=== PATIENT | female | born 2000 | race African-American/Black ===

== ENCOUNTER 2023-03-10 01:14 | Emergency (ER) | payer OTHER, MEDICAID ==
[~2023-03-10] VITALS: Ht 162.6 cm; Wt 77.2 kg
[2023-03-10 01:24] VITALS: O2SAT 100
[2023-03-10 02:19] LABS: BASOPHILS % 0.3 % (0.0-2.0); EOSINOPHILS % 1.6 % (0.0-5.0); HEMATOCRIT. 34.3 % (36.0-48.0); HEMOGLOBIN. 12.1 g/dL (12.0-16.0); LYMPHOCYTES % 27.4 % (20.0-50.0); MEAN CORPUSCULAR HEMOGLOBIN 28.9 pg (28.0-32.0); MEAN CORPUSCULAR VOLUME 82.2 fL (81.0-99.0); MEAN PLATELET VOLUME 7.5 fl (7.4-10.4); NEUTROPHILS % 60.7 % (40.0-76.0); PLATELET 250 x1000/uL (130-400); RED BLOOD CELL COUNT 4.18 mill/uL (4.2-5.4); RED CELL DISTRIBUTION WIDTH 14.8 % (11.6-14.6)
[2023-03-10 04:00] VITALS: BP 114/55; PULSE 68; RESP 15; TEMP 98
== END 2023-03-10 04:20 | disposition home or self-care (01) ==
LOC: ER 01:14
DX: O26.891 Other specified pregnancy related conditions, first trimester (principal); S39.91XA Unspecified injury of abdomen, initial encounter; Z3A.09 9 weeks gestation of pregnancy; V49.59XA Passenger injured in collision with other motor vehicles in traffic accident, initial encounter; Y93.89 Activity, other specified; Y92.89 Other specified places as the place of occurrence of the external cause; Y99.8 Other external cause status
CPT/HCPCS: 84702; 85025; 36415; 99283; Z7610

== ENCOUNTER 2023-11-21 22:34 | Emergency (ER) | payer OTHER, MEDICAID ==
[~2023-11-21] VITALS: Ht 162.6 cm; Wt 91.0 kg
[2023-11-21 22:37] VITALS: PULSE 110
[2023-11-21 22:44] VITALS: BP 147/97; RESP 18; O2SAT 100
[2023-11-21 23:45] VITALS: TEMP 98.2
[2023-11-21] MEDS: LIDOCAINE HCL 1% 20ML VIAL (Pyxis) INJ INFIL ONE (23:45)
[2023-11-21] MEDS: ACETAMINOPHEN 325MG TABLET PO ONE (23:45)
[2023-11-21] MEDS: BACITRACIN ZINC OINT UDPKT TOP NR (23:45)
[2023-11-21] MEDS: BACITRACIN 14GM TUBE TOP ONE (23:45)
[2023-11-22 02:09] LABS: HCG SCREEN NEGATIVE
== END 2023-11-22 01:35 | disposition home or self-care (01) ==
LOC: ER 22:34
DX: S01.81XA Laceration without foreign body of other part of head, initial encounter (principal); Y08.89XA Assault by other specified means, initial encounter; Y93.89 Activity, other specified; Y92.89 Other specified places as the place of occurrence of the external cause; Y99.8 Other external cause status
CPT/HCPCS: 73562; 73590; 12011; 99284; 84703; 70450; J3490; Z7610 ×2